=== PATIENT | female | born 1940 | race Asian ===

== ENCOUNTER 2018-06-28 09:29 | Emergency (ER) | payer MEDICARE, OTHER | END 2018-06-28 12:23 | disposition left against medical advice (07) | LOC: FTE 09:29 | DX: R05 Cough (principal); I10 Essential (primary) hypertension; E11.9 Type 2 diabetes mellitus without complications | CPT/HCPCS: 99283 ==

== ENCOUNTER 2018-11-05 10:09 | Emergency (ER) | payer MEDICARE, OTHER ==
[2018-11-05] MEDS: ONDANSETRON 4 MG INJ IV (12:56)
[2018-11-05] MEDS: morphine 4 MG/ML VIAL IV (12:56)
[2018-11-05 13:01] LABS: ADD MAN DIFF? NO
[2018-11-05 13:03] LABS: BASOPHIL # 0.1 10^3/ul (0.0-0.1); BASOPHILS % 0.7 % (0.0-2.0); EOSINOPHILS # 0.2 10^3/ul (0.0-0.5); EOSINOPHILS % 2.8 % (0.0-7.0); HEMATOCRIT 47.7 % (37.0-47.0); HEMOGLOBIN 15.5 g/dl (12.0-16.0); LYMPHOCYTES # 3.3 10^3/ul (0.8-2.9); LYMPHOCYTES % 44.6 % (15.0-51.0); MEAN CORPUSCULAR HEMOGLOBIN 28.7 pg (29.0-33.0); MEAN CORPUSCULAR HGB CONC 32.5 g/dl (32.0-37.0); MEAN CORPUSCULAR VOLUME 88.3 fl (82.0-101.0); MEAN PLATELET VOLUME 10.1 fl (7.4-10.4); MONOCYTE # 0.4 10^3/ul (0.3-0.9); MONOCYTES % 5.3 % (0.0-11.0); NEUTROPHIL # 3.4 10^3/ul (1.6-7.5); NEUTROPHILS % 46.5 % (39.0-77.0); PLATELET COUNT 243 10^3/UL (140-415); RED CELL DISTRIBUTION WIDTH 13.1 % (11.5-14.5)
[2018-11-05 13:03] LABS: WHITE BLOOD COUNT 7.4 10^3/ul (4.8-10.8)
[2018-11-05 13:21] LABS: ALANINE AMINOTRANSFERASE 33 IU/L (13-69); ALBUMIN/GLOBULIN RATIO 1.19; ALKALINE PHOSPHATASE 83 IU/L (42-121); ANION GAP 9 (5-13); ASPARTATE AMINO TRANSFERASE 30 IU/L (15-46); BILIRUBIN,INDIRECT 0.7 mg/dl (0-1.1); BILIRUBIN,TOTAL 0.7 mg/dl (0.2-1.3); BLOOD UREA NITROGEN 12 mg/dl (7-20); CALCIUM 10.1 mg/dl (8.4-10.2); CARBON DIOXIDE 30 mmol/L (21-31); CHLORIDE 106 mmol/L (97-110); CREATININE 0.49 mg/dl (0.44-1.00); GLUCOSE 104 mg/dl (70-220); LIPASE 60 U/L (23-300); POTASSIUM 3.8 mmol/L (3.5-5.1); SODIUM 145 mmol/L (135-144); TOTAL PROTEIN 9.2 g/dl (6.1-8.1)
== END 2018-11-05 15:26 | disposition home or self-care (01) ==
LOC: E/R 10:09
DX: R10.31 Right lower quadrant pain (principal); I10 Essential (primary) hypertension; R40.2142 Coma scale, eyes open, spontaneous, at arrival to emergency department; R40.2252 Coma scale, best verbal response, oriented, at arrival to emergency department; R40.2362 Coma scale, best motor response, obeys commands, at arrival to emergency department
CPT/HCPCS: 36415; 74176; 80053; 83690; 85025; 99284-25